=== PATIENT | male | born 1940 | race Caucasian/White ===

== ENCOUNTER → 2018-06-06 | Outpatient (CLI) | payer OTHER, MEDICARE ==
[~2018-06-06] MED LIST: ACCUPRIL40 MG; AMLODIPINE BESYL5 MG; ASPIRIN EC81 M1; CIPROFLOXACIN500 M1 PO; CRESTOR40 MG; FLAGYL500 MG PO; HCTZ; LABETALOL 100100 MG PO; LASIX 40 MG TAB40 M2 PO; NORCO 5-325 TA1 EACH PO; SPIRONOLACTONE25 M1 PO; ZOFRAN4 MG PO
[2018-06-06 12:07] LABS: ABSOLUTE NEUTROPHILS 12.2 thou/uL (1.4-8.2); BASOPHILS 0.9 % (0.0-2.0); EOSINOPHILS 0.6 % (0.0-3.0); HEMOGLOBIN 13.1 gm/dL (14.0-18.0); LYMPHOCYTES 13.1 % (24.0-44.0); MCH 27.9 pg (26.0-34.0); MCHC 32.9 g/dL (28.0-37.0); MONOCYTES 7.9 % (1.0-8.0); PLATELET COUNT 248 thou/uL (150-400); POLYS 77.5 % (36.0-66.0); RDW 15.1 % (10.5-14.5); WBC 15.7 thou/uL (4.0-11.0)
[2018-06-06 12:22] LABS: ALBUMIN 3.5 g/dL (3.4-5.0); CALCIUM 9.2 mg/dL (8.5-10.1); CREATININE 1.1 mg/dL (0.7-1.3); POTASSIUM 3.6 mmol/L (3.5-5.1); TOTAL BILIRUBIN 0.7 mg/dL (<0.1-1.0); TOTAL PROTEIN 6.9 g/dL (6.4-8.2)
== END ==
LOC: LAB 11:33
PROVIDERS: Nurse Practitioner
DX: K57.32 Diverticulitis of large intestine without perforation or abscess without bleeding (principal); M47.815 Spondylosis without myelopathy or radiculopathy, thoracolumbar region

== ENCOUNTER → 2020-02-18 | Outpatient (CLI) | payer OTHER, MEDICARE | LOC: MRI 08:53 | DX: M47.816 Spondylosis without myelopathy or radiculopathy, lumbar region (principal); M46.1 Sacroiliitis, not elsewhere classified; M48.062 Spinal stenosis, lumbar region with neurogenic claudication; N28.1 Cyst of kidney, acquired ==

== ENCOUNTER → 2020-03-16 | Outpatient (CLI) | payer OTHER, MEDICARE ==
[~2020-03-16] VITALS: Ht 167.6 cm; Wt 102.1 kg
[~2020-03-16] MED LIST changes: +ACCUPRIL40 MG PO; +DICLOFENAC POTA50 MG PO; -HCTZ; +HYDROCHLOROTH12.5 M1 PO; +IBU600 MG PO; +NEURONTIN300 MG PO; +PRAVACHOL40 MG PO; +PRESERVISION A1 EAC2 PO; +XALATAN2.5 ML OPHTHALMIC
--- NOTE | ~2020-03-16 | HPC ---
[facility] [address] [address] PAIN MANAGEMENT CONSULTATION Name: ZAKIYA DUDLEY Rigo [facility] [id number] Admission: 03/16/20 Attend Phys: Aramis Hernandez DO Discharge: Date of : 38 Report #: [id number] THIS REPORT FOR: cc: Zac Pink Andrea RNP Johnson, James E. DO ~ DATE OF SERVICE: 03/16/2020 REFERRING PHYSICIAN: Bird Elaine MD CHIEF COMPLAINT: Low back pain, bilateral buttock and posterolateral thigh pain. HISTORY OF PRESENT ILLNESS: As you know, the patient is a very pleasant 79-year-old male who has had a longstanding history of low back pain, bilateral buttock pain began in 12/1989. The patient denies any specific injury or trauma, but remembers his pain began at this time. He continues to experience progressively worsening symptoms. He ultimately failed conservative treatment, was referred to Dr. Elaine at [facility] for evaluation. The patient was seen in consultation by Dr. Elaine on 02/24/2020 after undergoing MRI imaging. It was believed the patient may be experiencing some lumbar radiculopathy and some SI joint dysfunction. He was subsequently referred to our clinic as he did not appear to need surgical intervention based on the findings of the imaging studies and the physical examination. The patient has also been sent for physical therapy to which he has yet to begin. The patient reports today his pain is periodic and intermittent. He describes the pain as aching. He places current pain score at 8/10, daily average of 6-8/10, worst pain has been 10/10. The patient states pain is exacerbated with weightbearing and walking, improves with rest and nonsteroidal anti-inflammatories. The patient has been referred to our service to discuss interventional treatment options to address low back and bilateral buttock pain. PAST MEDICAL HISTORY: 1. Dyslipidemia. 2. Hypertension. 3. History of prostate cancer, status post prostatectomy. PAST SURGICAL HISTORY: Prostate surgery in 2000, shoulder surgery in 2019. SOCIAL HISTORY: The patient denies tobacco use. Denies IV or illicit drug use. Admits to 1 alcohol beverage to 2 alcoholic beverages a day. He is retired. He retired about 10 years ago. He is not receiving workmen's compensation nor he is trying to obtain disability benefits. He is not in litigation in regards to pain. He is unaccompanied at today's visit. [address] [address] PAIN MANAGEMENT CONSULTATION Name: ZAKIYA DUDLEY Rigo [facility] [id number] Admission: 03/16/20 Attend Phys: Aramis Hernandez DO Discharge: Date of : 38 Report #: [id number] REVIEW OF SYSTEMS: Positive for recent weight change, wearing corrective eyewear, nocturia, chronic low back pain. All other review of systems negative per 12-point review of systems other than those listed in history of present illness. Pain impact score 49/70, severe interference of daily activities secondary to pain. ALLERGIES: No known drug allergies. CURRENT MEDICATIONS: Accupril 40 mg once a day, hydrochlorothiazide 12.5 mg once a day, labetalol 100 mg b.i.d., pravastatin 40 mg per day, latanoprost 1 drop each eye per day, ibuprofen 600 mg 3 times a day, and gabapentin 300 mg twice a day. IMAGING: MRI of the lumbar spine obtained on 02/18/2020 shows T12-L1 unremarkable, at L1-L2, minimal disk bulge, no central canal stenosis, mild facet arthropathy. No neural foraminal stenosis. At L2-L3, mild right eccentric generalized disk bulge, mild ligamentum flavum hypertrophy. When combined causing [id number] central canal stenosis, moderate left and mild right facet arthropathy, minimal bilateral neural foraminal narrowing. At L3-L4, generalized disk bulge, there is mild loss of height. Mild ligamentum flavum hypertrophy, [id number] central canal stenosis, moderate facet arthropathy, moderate left and mild right neural foraminal stenosis. The exiting left L3 nerve root appears compromised. At L4-L5, mild central canal stenosis, no focal disk herniation, mild generalized disk bulge. Endplate osteophyte and mild facet arthropathy is noted, moderate neural foraminal stenosis bilaterally. At L5-S1, small left lateral focal disk extrusion measuring 8 mm, contacting the origin of the left S1 nerve root, new since prior study. No central canal stenosis, moderate facet arthropathy, severe right neural foraminal stenosis affecting the right L5 nerve root, which has progressed since prior study. PQRS: The patient has known arthritic changes of the lumbar spine, bilateral hips and knees. No rheumatoid arthritis. He is placing pain score at 8/10. He is not a fall risk, has not had a fall in last 3 months. He is not on blood thinners, but is treated for hypertension. He is not on any opioids, has a low opiate addiction potential based on assessment tool. Pain impact 49/70, severe interference of daily activities secondary to pain. PHYSICAL EXAMINATION: VITAL SIGNS: Blood pressure 178/101, pulse is 74, respiratory rate 16 and unlabored. The patient is 97% on room air. Height 5 feet 6 inches tall, weight 225 pounds, BMI calculated 36.3. GENERAL: Well-developed, well-nourished, well-hydrated exogenously obese 79-year-old male. He appears his stated age. He is placing current pain score [facility] [address] [place] [address] PAIN MANAGEMENT CONSULTATION Name: ZAKIYA DUDLEY Room #: [facility]#: [id number] Admission: 03/16/20 Attend Phys: Aramis Hernandez DO Discharge: Date of : 38 Report #: [id number] around 8/10. HEENT: Normocephalic, atraumatic. Pupils equal, round. NEUROLOGIC: Speech is fluent. Hearing is excellent. The patient is wearing a mask in compliance with COVID-19 regulations. LUNGS: Appear clear. No wheeze or rhonchi. No appreciable rales. CARDIOVASCULAR: Regular. No appreciable gallop, no rub. ABDOMEN: Soft, obese, normal active bowel sounds. EXTREMITIES: Show no clubbing, no cyanosis, and no edema. MUSCULOSKELETAL: Lower extremity strength appears symmetrical 5/5. Deep tendon reflexes are 1+/4 at patella and Achilles. Ankle clonus is negative. Babinski is negative. Muscle bulk and tone is symmetrical in lower extremities. Seated straight leg raising is negative. Supine straight leg raising is negative. Vicki's test is negative. Modified Gaenslen's positive for axial low back pain. Ankle clonus is negative. Babinski is negative. Lumbar provocation testing including extension, rotation, lateral flexion, all intensify axial back pain. ASSESSMENT: 1. Chronic lumbar radiculopathy. 2. Displacement of lumbar intervertebral disk with radiculopathy. 3. Lumbosacral spondylosis with radiculopathy. 4. Facet arthropathy of the lumbar spine. 5. Chronic low back pain. PLAN: 1. Based on today's physical exam and the history, the patient has provided the description the patient uses in regards to pain as well as distribution of the symptoms he is experiencing, it would appear he is suffering from both lumbar radiculopathy and facet arthropathy of the lumbar spine. There is a component of both present in the patient's description of symptoms as well as the provocating testing today. We discussed with the patient the treatment options we have available for his current symptoms. The following was discussed with the patient today. We did take time with the patient to review his MRI and correlated those findings in the MRI to his current physical presentation. We conversed about the following treatments: We discussed physical therapy, stretching exercises and core strengthening techniques. This along with a concerted effort at weight loss could improve his axial back pain due to facet arthropathy. We discussed with the patient adjustments in medication management to address neuropathic symptoms. He is currently taking gabapentin, but at a very low dose. This could be escalated to improve analgesic benefit from a neuropathic pain standpoint. We discussed interventional treatments to address lumbar radiculopathy including a lumbar epidural injection. We discussed treatments to address facet arthropathy, which would include intra-articular facet injections, medial branch nerve blocks and possible radiofrequency lesioning. We also discussed with the patient surgical options, though given the results of his evaluation with Neurosurgery this does [address] [address] PAIN MANAGEMENT CONSULTATION Name: ZAKIYA DUDLEY Rigo Room #: REG [facility] Jackson#: [id number] Admission: 03/16/20 Attend Phys: Aramis Hernandez DO Discharge: Date of : 38 Report #: [id number] not appear to be recommended at this time. After reviewing risks and benefits of all proposed treatment options, the patient chose to begin with conservative adjustments in medication management, then to look towards interventional treatments if the conservative treatment is ineffective. 2. The patient will increase his gabapentin. He is currently taking 300 mg at night. He will then increase to 600 mg over 3 nights. If no improvement in symptoms, no side effects, then increase to 900 mg p.o. at bedtime. If no improvement in symptoms, no side effects of sleepiness, disorientation, confusion, mental slowing, then begin titrating in the morning, starting 300 mg in morning, continuing 900 mg at night for 3 nights, then increase to 600 mg in the morning and 900 mg at night for 3 nights and then 900 mg b.i.d. This will be our goal dose initially. We will review efficacy at our next appointment. He was given a prescription of gabapentin 300 mg tablets, #180 to achieve this titration. 3. We have advised the patient discontinue all other nonsteroidal anti-inflammatories in place, we will use diclofenac sodium twice a day for facet arthropathy pain. This will give the patient a [facility] benefit from nonsteroidal anti-inflammatory standpoint to watch for side effects of dyspepsia, worsening of blood pressure, lower extremity edema with use of medication. He was given this prescription with #60 tablets, 2 refills, essentially 3 months' worth of medication if effective. 4. We will see the patient back in followup visit after a month of trial of medication along with his home physical therapy program. If we are not seeing improvement in symptoms, we will then address interventional treatments with the patient. We are hopeful the patient will see benefit and will keep you apprised of his response. 5. We wish to thank Dr. Bird Elaine for the referral of the patient to our clinic. We will keep you apprised of his response to treatment as we address both facet arthropathy pain and lumbar radiculopathy. Again, we wish to thank you for the opportunity to see the patient in consultation. By: [id number] Aramis Hernandez DO /nt
[2020-03-16 13:31] VITALS: BP 178/101
--- NOTE | 2020-03-16 13:41 | NUR ---
Pain Clinic Assessment: 1. History of Osteoarthritis: BACK HIPS History of Rheumatoid Arthritis: 2. Height: 5 ft. 6 in. 167.6 cm. Weight: 225.0 lb. oz. 102.060 kg. Patient's BMI: 36.3 3. Vital Signs: BP: 178/101 Pulse: 74 Resp: 16 Temp: 02 Sat: 97 ECG Mon: 4. Pain Intensity: 8 5. Fall Risk: Dizziness: Needs help standing or walking: Fallen in the last 3 months: Fall risk comments: 6. Patient on Blood Thinner: None 7. History of Hypertension: Y 8. Opioid Therapy greater than 6 weeks: N Opiate Contract Signed: 9. Risk Assessment Tool Provided: LOW-0 10. Functional Assessment Tool: 49/70 11. Recreational Drug Use: Never Drug Type: Tobacco Use: Never Smoker Tobacco Type: Amount or Packs/day: How Many Years: Alcohol Use: Yes Frequency: Daily Quant: 1 TO 2
== END ==
LOC: PAIN 06:56
PROVIDERS: ATTEND Anesthesiology Pain Medicine
DX: M51.16 Intervertebral disc disorders with radiculopathy, lumbar region (principal); M47.27 Other spondylosis with radiculopathy, lumbosacral region; G89.29 Other chronic pain; Z79.891 Long term (current) use of opiate analgesic

== ENCOUNTER → 2020-05-12 | Outpatient (CLI) | payer OTHER, MEDICARE ==
[~2020-05-12] VITALS: Ht 167.6 cm; Wt 106.9 kg
[~2020-05-12] MED LIST changes: +NEURONTIN600 MG PO
[2020-05-12 07:59] VITALS: BP 153/78
--- NOTE | 2020-05-12 08:14 | NUR ---
Pain Clinic Assessment: 1. History of Osteoarthritis: BACK HIPS History of Rheumatoid Arthritis: 2. Height: 5 ft. 6 in. 167.6 cm. Weight: 235.6 lb. oz. 106.868 kg. Patient's BMI: 38.0 3. Vital Signs: BP: 153/78 Pulse: 87 Resp: 18 Temp: 02 Sat: 97 ECG Mon: 4. Pain Intensity: 8 TO 9 5. Fall Risk: Dizziness: N Needs help standing or walking: N Fallen in the last 3 months: N Fall risk comments: 6. Patient on Blood Thinner: None 7. History of Hypertension: Y 8. Opioid Therapy greater than 6 weeks: N Opiate Contract Signed: 9. Risk Assessment Tool Provided: LOW-0 10. Functional Assessment Tool: 49/70 11. Recreational Drug Use: Never Drug Type: Tobacco Use: Never Smoker Tobacco Type: Amount or Packs/day: How Many Years: Alcohol Use: Yes Frequency: Daily Quant: 2
--- NOTE | 2020-05-13 08:06 | HPC ---
[facility] [place] [address] PAIN MANAGEMENT CONSULTATION Name: LUIS ENRIQUEZAKIYA Sierra Room #: REG [facility] Manuel#: [id number] Admission: 05/12/20 Attend Phys: Aramis Hernandez DO Discharge: Date of : 38 Report #: [id number] THIS REPORT FOR: cc: Zac Pink Andrea RNP Johnson, James E. DO ~ DATE OF SERVICE: 05/12/2020 CHIEF COMPLAINT: Low back pain, bilateral buttock and posterolateral thigh pain. HISTORY OF PRESENT ILLNESS: As you know, the patient is a very pleasant 79-year-old male with longstanding history of low back pain, bilateral buttock and posterolateral thigh pain began in 12/1989. He denies any specific injury or trauma. He was referred to our clinic by his neurosurgeon, Dr. Bird Elaine, to discuss interventional treatment options. We saw the patient in consultation, diagnosed with a combination of lumbar radiculopathy and possibly bilateral SI joint dysfunction. He was started on medication management for which he has now received benefit in the bilateral buttock area, but continues to experience axial back pain radiating across the back and down the posterolateral thigh. He escalated his dose of gabapentin 900 mg twice a day, but then discontinued that dosing as he "ran out of medications." He is back to 600 b.i.d. He is wanting to schedule an injection, but has his second COVID-19 injection planned for 05/24 which precludes us from providing any steroid exposure until 2 weeks after that, which would be 06/08/2020. He returns today to begin the scheduling of that requested epidural injection and to make adjustments in medication management if possible. The patient continues to complain of pain of level 8-9/10 with ambulation. He states gabapentin is helping his hips, but has done nothing for his axial back. He returns today in followup visit for adjustments in treatment. ALLERGIES: No known drug allergies. CURRENT MEDICATIONS: Accupril 40 mg once a day, hydrochlorothiazide 12.5 mg once a day, labetalol 100 mg b.i.d., pravastatin 40 mg per day, latanoprost 1 drop each eye per day, ibuprofen 600 mg 3 times a day, gabapentin 600 mg twice a day. SOCIAL HISTORY: The patient denies tobacco use. Denies IV or illicit drug use. He admits to 1-2 alcohol beverages per day. He is retired, retired about 10 years ago, unaccompanied today. IMAGING: No new imaging available. PQRS: The patient has known arthritic changes of the lumbar spine, bilateral hips and knees. No rheumatoid arthritis. Placing current pain intensity [address] [address] PAIN MANAGEMENT CONSULTATION Name: ZAKIYA DUDLEY Room #: REG [facility] Jackson#: [id number] Admission: 05/12/20 Attend Phys: Aramis Hernandez DO Discharge: Date of : 38 Report #: [id number] anywhere from 8-10/10 depending on activities. He is not a fall risk, has not had a fall in last 3 months. He is not on blood thinners, but is treated for hypertension. He is not on any chronic opioids, has a low opioid addiction potential. Pain impact today rated at 49/70, severe interference of daily activities secondary to pain. PHYSICAL EXAMINATION: VITAL SIGNS: Blood pressure 153/78, pulse 87, respiratory rate 18 and unlabored. The patient is 97% on room air. Height 5 feet 6 inches tall, 235.6 pounds, BMI calculated 38.0. GENERAL: Well-developed, well-nourished, well-hydrated exogenously obese 79-year-old male. He appears stated age, pain is rated anywhere from an 8-10/10 depending on activity. HEENT: Normocephalic, atraumatic. Pupils are round and responsive. The patient is wearing a mask in compliance with COVID-19 regulations. EXTREMITIES: Show no clubbing, no cyanosis. No appreciable edema. MUSCULOSKELETAL: Lower extremity strength is symmetrical again today 5/5. Deep tendon reflexes are diminished, 1+/4 bilaterally, but symmetrical. Seated straight leg raising negative. Supine straight leg raising negative. Vicki's test is negative for any intrinsic hip pathology. Modified Gaenslen's positive for axial low back pain. Ankle clonus negative. Babinski is negative. ASSESSMENT: 1. Chronic lumbar radiculopathy. 2. Displacement of lumbar intervertebral disk with radiculopathy. 3. Lumbosacral spondylosis with radiculopathy. 4. Facet arthropathy of the lumbar spine. 5. Chronic intractable pain. PLAN: 1. The patient returns today in followup visit having noted improvement in symptoms with the increasing gabapentin affecting the bilateral "hips." The patient has no known hip pathology. It is believed his symptoms are more related to the SI joint area as he points to this area when describing hip pain. He has had some improvement in symptoms with gabapentin. We recommend an increase in the gabapentin today. This will help for neuropathic pain and potentially improve axial back symptoms. We recommend escalating dose from 900 mg twice a day to 1200 mg twice a day. He will watch for side effects of sleepiness, disorientation, confusion, mental slowing. He is experiencing no real side effects at this time. The patient was provided a prescription of gabapentin 600 mg tablets, he is to take 2 tabs in the morning and 2 tablets at night. He was given #120 tablets with 2 refills, 3 months' worth of medication. The patient was advised to take the medication as directed. 2. We plan to see the patient back in followup visit 06/08 to undergo injection therapy to address axial back pain and lumbar radiculopathy. We have provided [address] [address] PAIN MANAGEMENT CONSULTATION Name: ZKAIYA DUDLEY Room #: REG CL Manuel#: [id number] Admission: 05/12/20 Attend Phys: Aramis Hernandez DO Discharge: Date of : 38 Report #: [id number] the patient the appointment to return to undergo that procedure. At the time of the appointment, we will determine if his symptoms are more related to the facets of the axial back or more related to the central canal stenosis. There are different pain generators in the lumbar region that are producing most of the patient's symptoms. We will address whether his symptoms are axial in nature, which would indicate a facet arthropathy source of symptoms or more in a generalized distribution in bilateral nature consistent with lumbar radiculopathy. We will discuss this at followup visit. We will plan for an epidural injection, but may make adjustments based on his presentation that day to address facet arthropathy. <ELECTRONICALLY SIGNED> By: Aramis Hernandez DO 05/13/20 [id number] [id number] Aramis Hernandez DO /emma
== END ==
LOC: PAIN 06:37
PROVIDERS: ATTEND Anesthesiology Pain Medicine
DX: M51.16 Intervertebral disc disorders with radiculopathy, lumbar region (principal); M47.26 Other spondylosis with radiculopathy, lumbar region; G89.4 Chronic pain syndrome; Z79.891 Long term (current) use of opiate analgesic; Z79.899 Other long term (current) drug therapy

== ENCOUNTER → 2020-06-08 | Outpatient (CLI) | payer OTHER, MEDICARE ==
[~2020-06-08] VITALS: Ht 165.1 cm; Wt 106.1 kg
[2020-06-08 08:14] VITALS: BP 136/83
--- NOTE | 2020-06-08 08:15 | NUR ---
Pain Clinic Assessment: 1. History of Osteoarthritis: BACK HIPS History of Rheumatoid Arthritis: 2. Height: 5 ft. 5 in. 165.1 cm. Weight: 234.0 lb. oz. 106.142 kg. Patient's BMI: 38.9 3. Vital Signs: BP: 136/83 Pulse: 73 Resp: 18 Temp: 02 Sat: 97 ECG Mon: 4. Pain Intensity: 8 TO 9 WITH WALKING 5. Fall Risk: Dizziness: N Needs help standing or walking: N Fallen in the last 3 months: N Fall risk comments: 6. Patient on Blood Thinner: None 7. History of Hypertension: Y 8. Opioid Therapy greater than 6 weeks: N Opiate Contract Signed: 9. Risk Assessment Tool Provided: LOW-0 10. Functional Assessment Tool: 49/70 11. Recreational Drug Use: Never Drug Type: Tobacco Use: Never Smoker Tobacco Type: Amount or Packs/day: How Many Years: Alcohol Use: Yes Frequency: Quant:
--- NOTE | 2020-06-09 07:42 | HPC ---
[facility] [place] [address] PAIN MANAGEMENT CONSULTATION Name: ZAKIYA DUDLEY Rigo Room #: [facility] [id number] Admission: 06/08/20 Attend Phys: Aramis Hernandez DO Discharge: Date of : 38 Report #: [id number] THIS REPORT FOR: cc: Zac Pink Andrea RNP Johnson, James E. DO ~ DATE OF SERVICE: 06/08/2020 REFERRING PHYSICIAN: Bird Elaine MD CHIEF COMPLAINT: Low back pain, right lower extremity pain. HISTORY OF PRESENT ILLNESS: As you know, the patient is an 79-year-old male referred to our clinic by his neurosurgeon to trial conservative options to address lumbar radiculopathy and suspected right sacroiliac joint dysfunction. The patient returns today in followup visit to undergo the first in the series of lumbar epidural injections under fluoroscopic guidance to address lumbar radicular pain that is his most pressing concern. The patient reports pain score of about 8-9/10. Pain is exacerbated with walking and standing. The patient states he exacerbated his symptoms while doing some gardening over the weekend. He returns today in followup visit to undergo lumbar epidural injection under fluoroscopic guidance. ALLERGIES: No known drug allergies. CURRENT MEDICATIONS: Accupril, hydrochlorothiazide, labetalol, pravastatin, latanoprost, ibuprofen, gabapentin. SOCIAL HISTORY: The patient denies tobacco use. Denies IV or illicit drug use. Admits to 1-2 alcohol beverages per day. He is retired, retired about 10 years ago, unaccompanied today. IMAGING: No new imaging available. PQRS: The patient has known arthritic changes of the lumbar spine, bilateral hips and knees. No rheumatoid arthritis. He is placing pain intensity at 8-9/10. He is not a fall risk, has not had a fall in last 3 months. He is not on blood thinners, but is treated for hypertension. He is not on chronic opioids, has a low opiate addiction potential based on assessment tool. Pain impact remains at 49/70, severe interference of daily activities secondary to pain. PHYSICAL EXAMINATION: VITAL SIGNS: Blood pressure 136/83, pulse 73, respiratory rate 18 and unlabored. The patient is 97% on room air. Height 5 feet 5 inches tall, weight 234 pounds, BMI calculated 38.9. [address] [address] PAIN MANAGEMENT CONSULTATION Name: ZAKIYA DUDLEY Rigo Room #: REG [facility]#: [id number] Admission: 06/08/20 Attend Phys: Aramis Hernandez DO Discharge: Date of : 38 Report #: [id number] GENERAL: Well-developed, well-nourished, well-hydrated exogenously obese 79-year-old male appearing stated age, pain is rated anywhere from 8-9/10. HEENT: Normocephalic, atraumatic. The patient is using a mask in compliance with COVID-19 regulations. EXTREMITIES: Showed no clubbing, no cyanosis. No appreciable edema. MUSCULOSKELETAL: Lower extremity strength remains symmetrical again today 5/5. Deep tendon reflexes are diminished, but symmetrical. Seated straight leg raising is negative. Supine straight leg raising is negative. Vicki's test is negative. Modified Gaenslen's positive for axial low back pain. ASSESSMENT: 1. Symptomatic lumbar radiculopathy. 2. Displacement of lumbar intervertebral disk with radiculopathy. 3. Lumbosacral spondylosis with radiculopathy. 4. Facet arthropathy of the lumbar spine. 5. Right sacroiliac joint dysfunction. 6. Chronic intractable pain. PLAN: 1. The patient returns today in followup visit to undergo first in a series of requested lumbar epidural injections under fluoroscopic guidance. The patient has been advised of the risks and the benefits of this procedure. These risks include but are not necessarily limited to bleeding, bruising, infection, worsening pain, no relief of pain, also risk of temporary or permanent muscle weakness, temporary or permanent nerve damage, possible paralysis and . The patient states understood and wished to proceed. 2. No medication changes made at today's visit. The patient will continue current medical therapy as prior prescribed. 3. We plan to see the patient back in followup visit in 30 days. At that time, review efficacy of today's epidural injection and determine if next in the series of epidural injections would be recommended. PROCEDURE NOTE DESCRIPTION OF PROCEDURE: L5-S1 right parasagittal epidural steroid injection under fluoroscopic guidance. This is the first procedure of the first series that the patient is undergoing. After obtaining written consent, the patient was taken back to the fluoroscopy suite, placed in a prone position with pillow under the abdomen to decrease lumbar lordosis. The skin overlying the lumbosacral area was then prepped and draped in aseptic fashion. The L5-S1 vertebral interspace was then identified by AP fluoroscopy. The skin and subcutaneous tissue overlying the target site of injection was anesthetized with 3 mL 1% lidocaine. [address] [address] PAIN MANAGEMENT CONSULTATION Name: ZAKIYA DUDLEY Room #: REG [facility]#: [id number] Admission: 06/08/20 Attend Phys: Aramis Hernandez DO Discharge: Date of : 38 Report #: [id number] A 20-gauge 3-1/2 inch Tuohy needle was then advanced under fluoroscopic guidance towards the epidural space using a right parasagittal approach. The epidural space was identified using loss of resistance to air technique. After negative aspiration for heme or cerebrospinal fluid, a total of 1 mL of Omnipaque was injected. A lumbar epidurogram was confirmed using both AP and lateral fluoroscopy. After negative aspiration for heme or cerebrospinal fluid, 5 mL of a solution containing 2 mL 40 mg per mL, 80 mg total triamcinolone along with 3 mL of lidocaine 1% was injected in increments. Contrast spread was noted posterior epidural space. The needle was then retracted approximately half way and needle tract flushed with 1 mL of 1% lidocaine. Needle was then removed. There were no apparent sensory or motor deficits in the lower extremity following the procedure. A sterile bandage was placed over the injection site. The heart rate, pulse, oximetry and blood pressure were continuously monitored after the procedure. There were no apparent complications. The patient tolerated the procedure well and was carefully escorted to the recovery room in stable condition. There were no apparent complications. After meeting discharge criteria, the patient was then discharged home. <ELECTRONICALLY SIGNED> By: Aramis Hernandez DO 06/09/20 0742 [id number] [id number] Aramis Hernandez DO /nt
== END | disposition home or self-care (01) ==
LOC: PAIN 06:49
PROVIDERS: ATTEND Anesthesiology Pain Medicine
DX: M51.16 Intervertebral disc disorders with radiculopathy, lumbar region (principal); M47.27 Other spondylosis with radiculopathy, lumbosacral region; M47.26 Other spondylosis with radiculopathy, lumbar region; M53.3 Sacrococcygeal disorders, not elsewhere classified; G89.29 Other chronic pain; I10 Essential (primary) hypertension; M19.90 Unspecified osteoarthritis, unspecified site; Z98.890 Other specified postprocedural states; Z79.899 Other long term (current) drug therapy

== ENCOUNTER → 2020-07-07 | Outpatient (CLI) | payer OTHER, MEDICARE ==
[~2020-07-07] VITALS: Ht 165.1 cm; Wt 103.9 kg
[2020-07-07 11:02] VITALS: BP 140/71
--- NOTE | 2020-07-07 11:09 | NUR ---
Pain Clinic Assessment: 1. History of Osteoarthritis: BACK HIPS History of Rheumatoid Arthritis: Not Applicable 2. Height: 5 ft. 5 in. 165.1 cm. Weight: 229.0 lb. oz. 103.874 kg. Patient's BMI: 38.1 3. Vital Signs: BP: 140/71 Pulse: 78 Resp: 16 Temp: 02 Sat: 98 ECG Mon: 4. Pain Intensity: 7 TO 8 5. Fall Risk: Dizziness: N Needs help standing or walking: N Fallen in the last 3 months: N Fall risk comments: 6. Patient on Blood Thinner: None 7. History of Hypertension: Y 8. Opioid Therapy greater than 6 weeks: N Opiate Contract Signed: 9. Risk Assessment Tool Provided: LOW-0 10. Functional Assessment Tool: 49/70 11. Recreational Drug Use: Never Drug Type: Tobacco Use: Never Smoker Tobacco Type: Amount or Packs/day: How Many Years: Alcohol Use: Yes Frequency: Weekly Quant: X3
--- NOTE | 2020-07-14 08:22 | HPC ---
[address] [address] PAIN MANAGEMENT CONSULTATION Name: ZAKIYA DUDLEY Room #: [facility] [id number] Admission: 07/07/20 Attend Phys: Aramis Hernandez DO Discharge: Date of : 38 Report #: [id number] THIS REPORT FOR: cc: Zac Pink Andrea RNP Johnson, James E. DO ~ DOC #: [id number] cc: Zac Ramirez DO DATE OF SERVICE: 07/07/2020 DATE OF SERVICE: 07/07/2020 CHIEF COMPLAINT: Low back pain, right lower extremity pain with paresthesias. HISTORY OF PRESENT ILLNESS: As you know, the patient is an 79-year-old male referred to our service by his neurosurgeon to trial conservative options to address lumbar radiculopathy. The patient underwent a lumbar epidural injection under fluoroscopic guidance to address lumbar radicular symptoms. At her last visit with reported 75% improvement in overall pain. Unfortunately, his symptoms have begun to reoccur. He returns today in followup visit with pain score of 7-8/10 requesting the next in the series of epidural injections. The patient reports he contacted Dr. Elaine who requested a second epidural injection be performed. He returns to undergo the procedure today. ALLERGIES: No known drug allergies. CURRENT MEDICATIONS: Accupril, hydrochlorothiazide, labetalol, pravastatin, latanoprost, ibuprofen, gabapentin. SOCIAL HISTORY: The patient denies tobacco use. Denies IV or illicit drug use. Admits to 1-2 alcohol beverages per day. He is retired about 10 years ago, unaccompanied today. IMAGING: No new imaging available. PQRS: The patient has known arthritic changes of lumbar spine, bilateral hips and knees. No rheumatoid arthritis. Pain is placed a 7-10/10. He is not a fall risk, has not had a fall in last 3 months. He is not on blood thinners, but is treated for hypertension. He is not on any chronic opioids, has a low opiate addiction potential. Pain impact 49-70 severe interference of daily activities secondary to pain. PHYSICAL EXAMINATION: VITAL SIGNS: Blood pressure 140/71, pulse 78, respiratory rate 16 and unlabored. The patient 98% on room air. Height 5 feet 5 inches tall, weight [facility] [address] [place] [address] PAIN MANAGEMENT CONSULTATION Name: ZAKIYA DUDLYE Rigo Room #: REG [facility]#: [id number] Admission: 07/07/20 Attend Phys: Aramis Hernandez DO Discharge: Date of : 38 Report #: [id number] 229 pounds, BMI calculated 38.1. GENERAL: Well-developed, well-nourished, well-hydrated exogenously obese 79-year-old male, appearing stated age, pain is rated today 7-8/10. HEENT: Normocephalic, atraumatic. Pupils equal, round and responsive. EXTREMITIES: Show no clubbing, no cyanosis. No appreciable edema. MUSCULOSKELETAL: Lower extremity strength equal and symmetrical 5/5. Muscle bulk and tone equal and symmetrical comparing lower extremities, though deconditioning noted bilaterally. Seated straight leg raising negative. Supine straight leg raising negative. Fabere's test is negative. Modified Gaenslen's positive for axial back pain. Ankle clonus negative. Babinski is negative. Gait antalgic. ASSESSMENT: 1. Symptomatic lumbar radiculopathy. 2. Displacement of lumbar intervertebral disk with radiculopathy. 3. Lumbosacral spondylosis with radiculopathy. 4. Facet arthropathy, lumbar spine. 5. Sacroiliac joint dysfunction. 6. Chronic intractable pain. PLAN: 1. The patient returns today in followup visit per the request of his neurosurgeon to undergo the second in the series of lumbar epidural injections. The patient has been advised of the risks and the benefits of this procedure. These risks include but are not necessarily limited to bleeding, bruising, infection, worsening pain, no relief of pain, also risk of temporary or permanent, muscle weakness, temporary or permanent nerve damage, possible paralysis post-dural puncture headache and . The patient states understood and wished to proceed. 2. No medication changes made at today's visit. The patient will continue current medical therapy as prior prescribed. 3. We plan to see the patient back in followup visit on an as needed basis for the next in the series of lumbar epidural injections. We are hopeful the patient will see good and prolonged symptom relief with the epidural injection performed today. PROCEDURE NOTE DESCRIPTION OF PROCEDURE: L5-S1 interlaminar epidural steroid injection under fluoroscopic guidance. This is the second procedure of the first series that the patient is undergoing. After obtaining written consent, the patient was taken back to the fluoroscopy suite, placed in a prone position with pillow under the abdomen to decrease lumbar lordosis. The skin overlying the lumbosacral area was then prepped and draped in aseptic fashion. The L5-S1 vertebral interspace was then identified [address] [address] PAIN MANAGEMENT CONSULTATION Name: ZAKIYA DUDLEY Room #: REG [facility]#: [id number] Admission: 07/07/20 Attend Phys: Aramis Hernandez DO Discharge: Date of : 38 Report #: [id number] by AP fluoroscopy. The skin and subcutaneous tissue overlying the target site of injection was anesthetized with 3 mL 1% lidocaine. A 20 gauge 3-1/2 inch Tuohy needle was then advanced under fluoroscopic guidance towards the epidural space using a paramedian approach. The epidural space was identified using loss of resistance to air technique. After negative aspiration for heme or cerebrospinal fluid, a total of 1 mL of Omnipaque was injected. A lumbar epidurogram was confirmed using both AP and lateral fluoroscopy. After negative aspiration for heme or cerebrospinal fluid, 5 mL of solution containing 2 mL 40 mg per mL 80 mg total triamcinolone along with 3 mL of lidocaine 1% was injected in increments. Contrast spread was noted posterior epidural space. The needle was then retracted approximately half way and needle tract flushed with 1 mL of 1% lidocaine. Needle was then removed. There were no apparent sensory or motor deficits in the lower extremity following the procedure. A sterile bandage was placed over the injection site. The heart rate, pulse, oximetry and blood pressure were continuously monitored after the procedure. There were no apparent complications. The patient tolerated the procedure well and was carefully escorted to the recovery room in stable condition. There were no apparent complications. After meeting discharge criteria, the patient was then discharged home. Aramis Hernandez DO JEJ/HERBERT/NIS <ELECTRONICALLY SIGNED> By: Aramis Hernandez DO 07/14/20 0822 0817 2147 Aramis Hernandez DO /nt
== END | disposition home or self-care (01) ==
LOC: PAIN 06-22 13:11
PROVIDERS: ATTEND Anesthesiology Pain Medicine
DX: M51.16 Intervertebral disc disorders with radiculopathy, lumbar region (principal); M47.27 Other spondylosis with radiculopathy, lumbosacral region; M47.26 Other spondylosis with radiculopathy, lumbar region; M53.3 Sacrococcygeal disorders, not elsewhere classified; G89.29 Other chronic pain; I10 Essential (primary) hypertension; M19.90 Unspecified osteoarthritis, unspecified site; Z98.890 Other specified postprocedural states; Z79.899 Other long term (current) drug therapy

== ENCOUNTER → 2020-08-03 | Outpatient (CLI) | payer OTHER, MEDICARE ==
[~2020-08-03] VITALS: Ht 165.1 cm; Wt 102.5 kg
[~2020-08-03] MED LIST changes: +NORTRIPTYLINE H25 M3 PO
[2020-08-03 14:02] VITALS: BP 152/89
--- NOTE | 2020-08-03 14:20 | NUR ---
Pain Clinic Assessment: 1. History of Osteoarthritis: BACK HIPS History of Rheumatoid Arthritis: Not Applicable 2. Height: 5 ft. 5 in. 165.1 cm. Weight: 226.0 lb. oz. 102.513 kg. Patient's BMI: 37.6 3. Vital Signs: BP: 152/89 Pulse: 80 Resp: 20 Temp: 02 Sat: 98 ECG Mon: 4. Pain Intensity: 8 5. Fall Risk: Dizziness: N Needs help standing or walking: N Fallen in the last 3 months: N Fall risk comments: 6. Patient on Blood Thinner: None 7. History of Hypertension: Y 8. Opioid Therapy greater than 6 weeks: N Opiate Contract Signed: 9. Risk Assessment Tool Provided: LOW-0 10. Functional Assessment Tool: 49/70 11. Recreational Drug Use: Never Drug Type: Tobacco Use: Never Smoker Tobacco Type: Amount or Packs/day: How Many Years: Alcohol Use: Yes Frequency: Daily Quant: 2
--- NOTE | 2020-08-10 09:33 | HPC ---
[facility] [place] [address] PAIN MANAGEMENT CONSULTATION Name: LUIS ENRIQUEMEGROSHAN Sierra Room #: REG [facility] [id number] Admission: 08/03/20 Attend Phys: Aramis Hernandez DO Discharge: Date of : 38 Report #: [id number] THIS REPORT FOR: cc: Zac Pink Andrea RNP Johnson, James E. DO ~ DOC #: [id number] cc: Bird Hernandez DO DATE OF SERVICE: 08/03/2020 DATE OF SERVICE: 08/03/2020. CHIEF COMPLAINT: Low back pain, right lower extremity pain with paresthesias. HISTORY OF PRESENT ILLNESS: As you know, the patient is a very pleasant 79-year-old male who was referred to our service by his neurosurgeon, Dr. Bird Elaine, to trial conservative treatment to address lumbar radiculopathy. We attempted initially medication management with the patient but side effects led to decrease in mentation and some sleepiness. We did work our way through those side effects and the patient was continued on gabapentin. Despite this medication, he was noticing no significant pain improvement. We made adjustments in that medication once again with minimal efficacy. He returned undergoing a lumbar epidural injection under fluoroscopic guidance on 06/08/2020. He had a repeat injection on 07/07/2020 with reported only 1 week improvement in symptoms. He returns today in followup visit to discuss treatment options. He is reporting pain today at a level of 08/10. No injury, no trauma. Pain begins in the low back, radiates down the left leg with radiation into the lateral left calf. ALLERGIES: No known drug allergies. CURRENT MEDICATIONS: Accupril, hydrochlorothiazide, labetalol, pravastatin, latanoprost, ibuprofen, gabapentin. SOCIAL HISTORY: The patient denies tobacco use. Denies IV or illicit drug use. Admits to 1-2 alcohol beverages per day. He retired about 10 years ago, unaccompanied today. IMAGING: No new imaging available. PQRS: The patient has known arthritic changes of lumbar spine, bilateral hips and knees. No rheumatoid arthritis, placing current pain score at 8/10. He is not a fall risk, does not have a fall in last 3 months. He is not on blood thinners, but is treated for hypertension. He is not on chronic opioids as a low opiate addiction potential. Pain impact is 49-70, severe interference of [facility] [address] [place] [address] PAIN MANAGEMENT CONSULTATION Name: ZAKIYA DUDLEY Rigo [facility] [id number] Admission: 08/03/20 Attend Phys: Aramis Hernandez DO Discharge: Date of : 38 Report #: [id number] daily activities secondary to pain. PHYSICAL EXAMINATION: VITAL SIGNS: Blood pressure 152/89, pulse 80, respiratory rate 20, unlabored. The patient 98% on room air. Height 5 feet 5 inches tall, weight 226 pounds, BMI calculated 37.6. GENERAL: Well-developed, well-nourished, well-hydrated 79-year-old male appearing stated age, pain is rated today at 8/10. HEENT: Normocephalic, atraumatic. Pupils equal, round and responsive. Speech is fluent. He is wearing a mask in compliance with COVID-19 regulations. EXTREMITIES: Show no clubbing, no cyanosis. No appreciable edema. MUSCULOSKELETAL: Lower extremity strength equal and symmetrical 5/5 intact to light touch from L1 through S2 dermatomes. Seated straight leg raising negative. Supine straight leg raising negative. Fabere's test is negative. Modified Gaenslen's positive for axial back pain. Gait is antalgic favoring left lower extremity over right. ASSESSMENT: 1. Symptomatic lumbar radiculopathy. 2. Displacement of lumbar intervertebral disk with radiculopathy. 3. Lumbosacral spondylosis with radiculopathy. 4. Facet arthropathy, lumbar spine. 5. Chronic intractable pain. PLAN: 1. The patient has returned today in followup visit to discuss treatment options for lumbar radiculopathy. We have attempted adjustments in medication management throughout the first in an initial evaluations escalating doses of some neuropathic medications, but unfortunately the patient has not noticed much in the way of improvement. He progressed on to lumbar epidural injections x 2, which provided only transient improvement. The most recent giving about one week of improvement in symptoms. He returns to discuss options for treatment today. We discussed the options that remains to treat his ongoing symptoms, would include the followin. We discussed physical therapy, stretching exercise, core strengthening and a concerted effort at weight loss. We discussed adjustments in medication management escalating his neuropathic medication and possibly even adding to his neuropathic pain medication something such as amitriptyline, nortriptyline or Cymbalta. We discussed a repeat epidural injection under fluoroscopic guidance. We did discuss with the patient that given the lack of efficacy with the first initial 2 injections, the likelihood of a third injection providing much in the way of improvement is minimal, though we would be willing to trial the injection if he wished to do so. We also discussed with the patient surgical options as he is not interested in a spinal cord stimulator. After reviewing risks and benefits of all proposed treatment options, he chose to make adjustments in medication management. He wishes to return to talk to Dr. Elaine about surgical [facility] [address] [place] [address] PAIN MANAGEMENT CONSULTATION Name: ZAKIYA DUDLEY Rigo Room #: [facility] [id number] Admission: 08/03/20 Attend Phys: Aramis Hernandez DO Discharge: Date of : 38 Report #: [id number] options. 3. The patient will be started on nortriptyline 25 mg dose. We recommend 1 tab p.o. at bedtime for 7 nights. If no improvement in symptoms, no side effects, then continue to 50 mg p.o. at bedtime for 7 nights. If no improvement in symptoms, no side effects and can escalate to 75 mg p.o. at bedtime. The patient will watch for any potential side effects with the medication including sleepiness, disorientation, confusion, mental slowing or significantly dry mucous membranes. If there are no side effects, I recommended continue with titration. 4. The patient will be following up with his neurosurgeon, Dr. Bird Elaine, in regards to surgical options. I have requested that the patient contact our clinic to keep us apprised whether or not surgical options are going to be entertained and if so, what surgery may be proposed. Aramis Hernandez DO JEJ/HERBERT <ELECTRONICALLY SIGNED> By: Aramis Hernandez DO 08/10/20 0933 1530 2247 Aramis Hernandez DO /emma
== END ==
LOC: PAIN 08:42
PROVIDERS: ATTEND Anesthesiology Pain Medicine
DX: M51.17 Intervertebral disc disorders with radiculopathy, lumbosacral region (principal); G89.4 Chronic pain syndrome; M79.661 Pain in right lower leg; M54.5 Low back pain; Z79.891 Long term (current) use of opiate analgesic; Z79.899 Other long term (current) drug therapy

== ENCOUNTER → 2020-08-17 | Outpatient (CLI) | payer OTHER, MEDICARE ==
[~2020-08-17] VITALS: Ht 165.1 cm; Wt 102.8 kg
[~2020-08-17] MED LIST changes: +NABUMETONE 500500 M2 PO
--- NOTE | ~2020-08-17 | HPC ---
[facility] [place] [address] PAIN MANAGEMENT CONSULTATION Name: ZAKIYA DUDLEY Rigo Room #: [facility] Manuel#: [id number] Admission: 08/17/20 Attend Phys: Aramis Hernandez DO Discharge: Date of : 38 Report #: [id number] THIS REPORT FOR: cc: Zac Pink Andrea RNP Johnson, James E. DO ~ DOC #: [id number] cc: Dr. Bird Hernandez DO DATE OF SERVICE: 08/17/2020 REFERRING PHYSICIAN: Dr. Bird Elaine. CHIEF COMPLAINT: Low back pain, bilateral lower extremity pain with paresthesias, right greater than left. HISTORY OF PRESENT ILLNESS: As you know, the patient is a very pleasant 79-year-old male referred to our service by his neurosurgeon, Dr. Bird Elaine to trial conservative treatment to address lumbar radiculopathy secondary to the findings at the L5-S1 level. The patient continues to experience pain despite undergoing 2 epidural injections, both of which provided only transient improvement in symptoms. We have made adjustments in medication management, but even those adjustments have not provided much in the way of improvement. He returns today in followup visit. Denying side effects to the medication, but no benefits. He is placing current pain score 6/10. He wishes to discuss possible return to Dr. Bird Elaine to converse more about surgical options and whether or not any other options might exist for his low back and bilateral lower extremity pain. ALLERGIES: No known drug allergies. CURRENT MEDICATIONS: Accupril, hydrochlorothiazide, labetalol, pravastatin, latanoprost, ibuprofen, gabapentin and nortriptyline. SOCIAL HISTORY: The patient denies tobacco use. Denies IV or illicit drug use. Admits to 1-2 alcohol beverages per day. He retired about 10 years ago, unaccompanied today. IMAGING STUDIES: No new imaging available. PQRS: The patient has arthritic changes of lumbar spine, bilateral hips and knees. No rheumatoid arthritis, placing current pain score 6/10. He is not a fall risk, has not had a fall in last 3 months. He is not on blood thinners, but is treated for hypertension. He is on no opioid medications, has a low opioid addiction potential. Pain impact is 49/70, severe interference of daily activities secondary to pain. [address] [address] PAIN MANAGEMENT CONSULTATION Name: LUIS ENRIQUEMEGROSHAN Sierra Room #: REG [facility] Jackson#: [id number] Admission: 08/17/20 Attend Phys: Aramis Hernandez DO Discharge: Date of : 38 Report #: [id number] PHYSICAL EXAMINATION: VITAL SIGNS: Blood pressure 148/75, pulse 90, respiratory rate 20 and unlabored. The patient 97% on room air. Height 5 feet 5 inches tall, weight 226.6 pounds, BMI calculated 37.7. GENERAL: Well-developed, well-nourished, well-hydrated exogenously obese 79-year-old male, appearing stated age, pain is rated at 6/10. HEENT: Normocephalic and atraumatic. Pupils are round. He is wearing a mask in compliance with COVID-19 regulations. EXTREMITIES: Show no clubbing, no cyanosis, no edema. MUSCULOSKELETAL: Lower extremity strength is symmetrical 5/5 intact to light touch from L1 through S2 dermatomes. Seated straight leg raising negative. Supine straight leg raising negative. Fabere's test is negative. Modified Gaenslen's positive for axial back pain. Gait is antalgic. Muscle bulk and tone equal and symmetrical in lower extremities. Deep tendon reflexes are equal and symmetrical, but diminished bilaterally. ASSESSMENT: 1. Symptomatic lumbar radiculopathy. 2. Displacement of lumbar intervertebral disk with radiculopathy. 3. Lumbosacral spondylosis with radiculopathy. 4. Facet arthropathy of lumbar spine. 5. Chronic intractable pain. PLAN: 1. The patient returns today in followup visit indicating no improvement with adjustments in medication management. He is wishing to follow up with Dr. Bird Elaine in regard to surgical options. I advised the patient that given the fact that he has seen no benefit with two epidural injections in sequence and adjustments in medication management, surgical options may be necessary. We did proposed to the patient the use of a spinal cord stimulator, but he is not at all interested in that device. He wishes to discuss further with Dr. Elaine surgical options. He will be following up with Dr. Elaine at his earliest convenience. I have requested that the patient or Dr. Elaine, please keep us apprised of the treatment options proposed. 2. We did discuss with the patient the possibility of undergoing medial branch nerve blocks and radiofrequency lesioning to address axial back pain. This could help to some degree improve his current low back symptoms, but will have no benefit from the bilateral lower extremity pain. The patient is going to consider this options and discussed this with Dr. Elaine at the followup visit. We will be more than willing to see the patient back in followup visit for medial branch blocks x 2 and possible radiofrequency lesioning. I did advise the patient that if this does improve symptoms it would likely not resolve all his symptoms, but would improve his axial back pain specifically. He will discuss with Dr. Elaine his options for treatment and advise us if he wishes to follow up with this type of treatment. [facility] [place] [address] PAIN MANAGEMENT CONSULTATION Name: ZAKIYA DUDLEY Room #: [facility] Manuel#: [id number] Admission: 08/17/20 Attend Phys: Aramis Hernandez DO Discharge: Date of : 38 Report #: [id number] 3. We have discontinued the patient's diclofenac sodium, in place will be using nabumetone 500 mg dose. He will be taking it b.i.d. with meals. He will keep us apprised whether or not this medication is beneficial. He is not to take any other nonsteroidal anti-inflammatories with this therapy. 4. We will see the patient back in followup visit on an as needed basis. We are hopeful the patient will see benefit with the medication adjustments as he discuss this case further with his neurosurgeon. Aramis Hernandez DO JEJ/NALLELY By: [id number] [id number] Aramis Hernandez DO /nt
[2020-08-17 12:49] VITALS: BP 148/75
--- NOTE | 2020-08-17 12:55 | NUR ---
Pain Clinic Assessment: 1. History of Osteoarthritis: BACK HIPS History of Rheumatoid Arthritis: Not Applicable 2. Height: 5 ft. 5 in. 165.1 cm. Weight: 226.6 lb. oz. 102.785 kg. Patient's BMI: 37.7 3. Vital Signs: BP: 148/75 Pulse: 90 Resp: 20 Temp: 02 Sat: 97 ECG Mon: 4. Pain Intensity: 6 5. Fall Risk: Dizziness: N Needs help standing or walking: N Fallen in the last 3 months: N Fall risk comments: 6. Patient on Blood Thinner: None 7. History of Hypertension: Y 8. Opioid Therapy greater than 6 weeks: N Opiate Contract Signed: 9. Risk Assessment Tool Provided: LOW-0 10. Functional Assessment Tool: 49/70 11. Recreational Drug Use: Never Drug Type: Tobacco Use: Never Smoker Tobacco Type: Amount or Packs/day: How Many Years: Alcohol Use: Yes Frequency: Weekly Quant: 2
== END ==
LOC: PAIN 10:08
PROVIDERS: ATTEND Anesthesiology Pain Medicine
DX: M51.16 Intervertebral disc disorders with radiculopathy, lumbar region (principal); M47.26 Other spondylosis with radiculopathy, lumbar region; G89.4 Chronic pain syndrome; Z79.899 Other long term (current) drug therapy; Z79.891 Long term (current) use of opiate analgesic

== ENCOUNTER 2020-12-13 13:40 | Inpatient (IN) | payer OTHER, MEDICARE ==
[~2020-12-13] VITALS: Ht 165.1 cm; Wt 98.9 kg
--- NOTE | ~2020-12-13 | HC ---
[facility] [place] [address] CONSULTATION Name: ZAKIYA DUDLEY Rigo Room #: 204-P [facility] IN ..#: [id number] Admission: 12/13/20 Attend Phys: Matt Wilson MD Discharge: 12/14/20 Date of : 38 Report #: [id number] THIS REPORT FOR: cc: Zac Pink Andrea RNP Khosla, Parveen K. MD ~ DATE OF SERVICE: 12/14/2020 HISTORY OF PRESENT ILLNESS: This is an 80-year-old male patient who was seen by me for an episode of speech difficulty. The patient's is there, she provides some history. Apparently, his speech got garbled when it happened. He was brought to Emergency Room and [facility] were consulted and his symptoms quickly resolved. 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 So, he does have disease in that distribution. He has returned back to the baseline. REVIEW OF SYSTEMS: Indicates that he recently had a diskectomy. He has a history of prostatic cancer, glaucoma, hyperlipidemia, asthma, arrhythmias, status post back problem. He does have hypertension and diet-controlled diabetes. Presently, he does not complain of any eye, ENT, cardiac, respiratory, GI or problems. He does have musculoskeletal issues and that is because of the back. He denies any anxiety or depression. He does not have any hematological or dermatological issues associated with present symptoms. PAST MEDICAL HISTORY: Negative for any stroke. FAMILY HISTORY: Positive for heart and stroke. SOCIAL HISTORY: He says he does drink alcohol; when he does, it is about 2 alcoholic drinks. He was not much forthcoming as far as rest of the history of alcohol was concerned. He does not smoke. PHYSICAL EXAMINATION: Indicates that he is alert and responsive. His speech looks normal. His memory and fund of knowledge is at his baseline. Cranial nerve examination II-XII looks unremarkable. He moves all 4 extremities symmetrically. His position sense is normal in both lower extremities. His reflexes are somewhat diminished and both plantars are mute. He does not have any meningeal sign. I could not have a good look at the patient's fundus and he does not have any cerebellar sign. I did not make him walk. Cardiac examinations appear unremarkable. He is a well-built individual who is morbidly obese. His hearing and vision look adequate. His pulses are somewhat difficult to feel, but nothing are palpable. No respiratory difficulty was noticed. Blood pressure is 163/84, respirations 18, pulse is 76, temperature is 97.8. LABORATORY DATA: White count is normal at 8.9. [address] [address] CONSULTATION Name: ZAKIYA DUDLEY Rigo Room #: 204-P [facility] IN .R.#: [id number] Admission: 12/13/20 Attend Phys: Matt Wilson MD Discharge: 12/14/20 Date of : 38 Report #: [id number] IMAGING: His imaging study was reviewed. His MRI does not show any evidence for any stroke. CT angiogram does show disease, but none of them is surgically accessible. 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 He was not on any antiplatelet. He has been started on antiplatelet in the Emergency Room and he is taking 81 mg of aspirin. I think since he was not taking aspirin, it is desirable to continue that. This is because he just had a back surgery and he is still having issues there and I hate to put him on Plavix and then have a problem there, but I did discuss his options with him and this is the option he wants to follow. If he has more spells while being on aspirin, then we need to consider that and I asked him to talk to his surgeon to see if they will allow the Plavix. I discussed the patient with Dr. Wilson and he is going to dismiss this patient, which is okay with me, but he needs to follow up with his back physician and he needs to work on his vascular risk factors, especially losing weight and increasing his HDL by exercises. He will need some further workup like sed rate, that can be done as an outpatient. The best I can tell echocardiogram was not done with bubble study and this patient needs an echocardiogram with bubble study. I have put a note to the nurses in that regard. Thank you very much for this referral. By: [id number] Allen Meeks MD /nt
[2020-12-13 13:51] VITALS: BP 154/61
--- NOTE | 2020-12-13 14:18 | NUR ---
PT NOT A TPA CANIDATE SECONDAY TO SPINAL SURG X3-4 WEEKS AGO
[2020-12-13 14:19] LABS: ABSOLUTE NEUTROPHILS 7.8 thou/uL (1.4-8.2); BASOPHILS 1.1 % (0.0-2.0); EOSINOPHILS 3.6 % (0.0-3.0); HEMATOCRIT 43.7 % (42.0-52.0); LYMPHOCYTES 20.5 % (24.0-44.0); MCH 27.4 pg (26.0-34.0); MCV 85.7 fL (80.0-100.0); MONOCYTES 7.8 % (1.0-8.0); PLATELET COUNT 298 thou/uL (150-400); RBC 5.09 mil/uL (4.50-6.00); RDW 14.5 % (10.5-14.5); WBC 11.7 thou/uL (4.0-11.0)
[2020-12-13] MEDS ORDERED: PROAIR HFA8.5 GM INH (14:32)
[2020-12-13 14:35] LABS: APTT 25.2 Seconds (24.5-32.8); INR 0.99; PROTIME 10.8 Seconds (10.5-12.1)
[2020-12-13] MEDS ORDERED: VITAMIN D210 MCG PO (14:35)
[2020-12-13] MEDS ORDERED: NEURONTIN 400M400 M2 PO (14:35)
[2020-12-13] MEDS ORDERED: [UNRECOGNIZED DRUG - OTHER] EA. EYE (14:35)
[2020-12-13] MEDS ORDERED: HYDROCHLOROTH12.5 M2 PO (14:36)
[2020-12-13] MEDS ORDERED: PRESERVISION T1 EACH PO (14:37)
[2020-12-13 14:38] LABS: CALCIUM 9.3 mg/dL (8.5-10.1); CREATININE 1.3 mg/dL (0.7-1.3)
[2020-12-13] MEDS ORDERED: METHOCARBAMOL500 M2 PO (14:38)
[2020-12-13] MEDS ORDERED: HYDROCODON-ACE1 EAC7 PO (14:38)
[2020-12-13] MEDS ORDERED: MELATONIN5 MG PO (14:39)
[2020-12-13 14:47] LABS: ALBUMIN 3.6 g/dL (3.4-5.0); TOTAL BILIRUBIN 0.7 mg/dL (0.2-1.0); TOTAL PROTEIN 7.5 g/dL (6.4-8.2)
--- NOTE | 2020-12-13 15:38 | EKG ---
[place] [address] [facility] [employer] [place] [address] ELECTROCARDIOGRAM REPORT Name: LUIS ENRIQUEZAKIYA Rigo [id number] Admission: 12/13/20 Attend Phys: Discharge: Date of : 38 Report #: [id number] [facility] ED Test Date: 2020-12-13 Test Time: 14:14:33 Pat Name: ZAKIYA DUDLEY Department: Room: Gender: M Office Helper Clerical: MPADAMIAN : 1940 Requested By: Kenrick Henson Order Number: [id number] MD: Gab Hopper Measurements Intervals [place] Rate: 73 P: -10 AL: 169 QRS: -29 QRSD: 94 T: 47 QT: 391 QTc: 431 Interpretive Statements Sinus rhythm Atrial premature complexes Borderline left axis deviation Abnormal R-wave progression, late transition No previous ECG available for comparison Electronically Signed On 12-13-2020 15:37:51 CDT by Gab Hopper [email or web address] <ELECTRONICALLY SIGNED> By: Gab Hopper MD, [facility] 12/13/20 1537 1414 1414 Gab Hopper MD, FACC /EPI
[2020-12-13 17:14] VITALS: BP 155/73
--- NOTE | 2020-12-13 17:24 | NUR ---
TUBED NEW EKG TO 2N TO FOLLOW PATIENT. W[employer]VE[employer] WORKER NOTIFIED
[2020-12-13 17:47] VITALS: BP 177/73
[2020-12-13 18:56] VITALS: BP 156/69
[2020-12-13 23:47] VITALS: BP 159/65
[2020-12-14 04:54] VITALS: BP 155/80
[2020-12-14 05:07] LABS: GLYCOHEMOGLOBIN (HGB A1C) 6.2 % (4.8-5.6)
[2020-12-14 05:47] LABS: BASOPHILS 1.5 % (0.0-2.0); HEMATOCRIT 39.3 % (42.0-52.0); LYMPHOCYTES 25.9 % (24.0-44.0); MCH 28.2 pg (26.0-34.0); MCV 85.5 fL (80.0-100.0); MONOCYTES 10.7 % (1.0-8.0); PLATELET COUNT 250 thou/uL (150-400); POLYS 56.9 % (36.0-66.0); WBC 8.9 thou/uL (4.0-11.0)
[2020-12-14 05:51] LABS: CALCIUM 8.5 mg/dL (8.5-10.1); CHOLESTEROL 141 mg/dL (<200); CREATININE 1.1 mg/dL (0.7-1.3); HDL CHOLESTEROL 34 mg/dL (>40); LDL CHOLESTEROL 80 mg/dL (<100); POTASSIUM 3.7 mmol/L (3.5-5.1); TC:HDL 4.1 Ratio (Not establshd); TRIGLYCERIDE 135 mg/dL (<150); VLDL 27 mg/dL (<40)
[2020-12-14 06:11] LABS: SERUM ASSESSMENT Clear
[2020-12-14 08:56] VITALS: BP 163/84
--- NOTE | 2020-12-14 13:26 | 2DMMODE ---
[facility] [address] 2 D/M-MODE ECHOCARDIOGRAM Name: ZAKIYA DUDLEY Rigo Room #: 204-P ADM IN .R.#: [id number] Admission: 12/13/20 Attend Phys: Matt Wilson MD Discharge: Date of : 38 Report #: [id number] THIS REPORT FOR: cc: Zac Pink Andrea RNP Santiago, Patrick MD [facility] ~ APPROVED REPORT Study performed: 12/14/2020 09:43:48 EXAM: Comprehensive 2D, Doppler, and color-flow Echocardiogram Patient Location: Bedside Room #: 204 Status: routine BSA: 2.05 HR: 89 bpm BP: 163/84 mmHg Rhythm: NSR Other Information Study Quality: GoodAdequate Indications CVA/TIA Diabetes Hypertension/HDD Echo Enhancing Agent Indication: Rule out Shunt Agent(s) / Amount(s) Used: Agitated Saline 7 cc 2D Dimensions IVSd: 10.24 (7-11mm) LVOT Diam: 19.37 (18-24mm) LVDd: 47.37 mm PWd: 10.24 (7-11mm) Ascending Ao: 31.44 (22-36mm) LVDs: 30.74 (25-40mm) Left Atrium: 39.17 (27-40mm) Aortic Root: 33.04 mm IVC: 13.00 mm Volumes Left Atrial Volume (Systole) Single Plane 4CH: 52.43 mL Single Plane 2CH: 48.61 mL LA ESV Index: 27.00 mL/m2 [facility] [place] [address] 2 D/M-MODE ECHOCARDIOGRAM Name: ZAKIYA DUDLEY Room #: 204-P [facility] IN ..#: [id number] Admission: 12/13/20 Attend Phys: Matt Wilson, Discharge: Date of : 38 Report #: [id number] Aortic Valve AoV Peak Ankit.: 1.67 m/s AO Peak Gr.: 11.12 mmHg LVOT Max P.15 mmHg LVOT Max V: 1.24 m/s ANNMARIE Vmax: 2.19 cm2 Mitral Valve E/A Ratio: 0.6 MV Decel. Time: 274.02 ms MV E Max Ankit.: 0.79 m/s MV A Ankit.: 1.31 m/s MV PHT: 79.46 ms IVRT: 124.57 ms Pulmonary Valve PV Peak Ankit.: 1.22 m/s PV Peak Gr.: 5.93 mmHg Pulmonary Vein P Vein S: 0.54 m/s P Vein A: 0.34 m/s P Vein D: 0.40 m/s P Vein A Dur.: 106.1 msec P Vein S/D Ratio: 1.35 Left Ventricle The left ventricle is normal size. There is normal LV segmental wall motion. There is normal left ventricular wall thickness. Left ventricular systolic function is normal. The left ventricular ejection fraction is within the normal range. LVEF is 55-60%. Grade I - abnormal relaxation pattern. Right Ventricle The right ventricle is normal size. The right ventricular systolic function is normal. Atria The left atrium size is normal. Interatrial septum is intact without evidence of ASD or PFO. The right atrium size is normal. Aortic Valve The aortic valve is normal in structure. No aortic regurgitation is present. There is no aortic valvular stenosis. Mitral Valve The mitral valve is normal in structure. There is no mitral valve regurgitation noted. No evidence of mitral valve stenosis. Tricuspid Valve [facility] [address] [place] [address] 2 D/M-MODE ECHOCARDIOGRAM Name: ZAKIYA DUDLEY Rigo Room #: 204-P [facility] IN [facility]#: [id number] Admission: 12/13/20 Attend Phys: Matt Wilson, Discharge: Date of : 38 Report #: [id number] The tricuspid valve is normal in structure. There is no tricuspid valve regurgitation noted. Pulmonic Valve The pulmonary valve is normal in structure. There is no pulmonic valvular regurgitation. Great Vessels The aortic root is normal in size. IVC is normal in size and collapses >50% with inspiration. Pericardium There is no pericardial effusion. <Conclusion> Normal left ventricular size/wall thickness Ejection fraction 55% Grade 1 diastolic dysfunction Normal right ventricle size/function Normal atrial size Normal aortic/mitral valve structure and function No evidence of tricuspid valve insufficiency No pericardial effusion Normal aortic root size. <ELECTRONICALLY SIGNED> By: Gab Hopper MD, FACC 12/14/201325 25 25 Gab Hopper MD, FACC /INF
[2020-12-14] MEDS ORDERED: ASA81BEC PO (15:24)
[2020-12-14 16:22] VITALS: BP 163/84
[2020-12-14 16:29] VITALS: BP 155/92
== END 2020-12-14 16:59 | disposition home or self-care (01) | DRG 69 ==
LOC: ER 13:40 → 2N 16:51 → EROBS 16:51 → 2N 17:20
PROVIDERS: Emergency Medicine; Nurse Practitioner; ADMIT Internal Medicine; ATTEND Internal Medicine
DX: G45.9 Transient cerebral ischemic attack, unspecified (principal); R47.01 Aphasia; Z20.822 Contact with and (suspected) exposure to COVID-19; I10 Essential (primary) hypertension; E78.5 Hyperlipidemia, unspecified; Z82.49 Family history of ischemic heart disease and other diseases of the circulatory system; Z82.3 Family history of stroke
CPT/HCPCS: 10081